=== PATIENT | female | born 1955 | race Caucasian/White ===

== ENCOUNTER 2021-08-15 15:50 | Outpatient (CLI) | payer OTHER | END 2021-08-15 15:51 | disposition home or self-care (01) | LOC: BURRAD 15:50 | PROVIDERS: ATTEND Nurse Practitioner Family | DX: R05.9 Cough, unspecified (principal); R53.83 Other fatigue; J84.10 Pulmonary fibrosis, unspecified; R91.1 Solitary pulmonary nodule | CPT/HCPCS: 71046 ==